=== PATIENT | male | born 1970 | race Hispanic/Latino ===

== ENCOUNTER 2017-05-19 15:56 | Emergency (ER) | payer SELFPAY ==
[~2017-05-19] VITALS: Ht 170.2 cm; Wt 88.0 kg
[2017-05-19 16:42] VITALS: BP 135/77
== END 2017-05-19 16:45 | disposition home or self-care (01) | DRG 951 ==
LOC: ED 15:56
DX: Z48.02 Encounter for removal of sutures (principal)